=== PATIENT | male | born 1960 | race Caucasian/White ===

== ENCOUNTER 2016-11-27 19:27 | Emergency (ER) | payer SELFPAY ==
[2016-11-27] MEDS ORDERED: OXYCODONE-ACETAMINOPHEN 5-325 MG TABLET PO ONE (21:30)
[2016-11-27] MEDS ORDERED: ONDANSETRON 4 MG TAB.RAPDIS PO ONE (21:30)
--- NOTE | 2016-11-27 21:31 | ER Document Report ---
ED Medical Screen (RME) - General Chief Complaint: Flank Pain Stated Complaint: RIGHT SIDE PAIN Mode of Arrival: Wheelchair Information source: Patient Notes: pt presents with right flank pain that started . He denies trauma, denies f/v/d. Reports hx of kidney stones years ago. TRAVEL OUTSIDE OF THE [place] IN LAST 30 DAYS: No - Related Data Allergies/Adverse Reactions: No Known Allergies Allergy (Verified 03/08/13 15:01) Past Medical History Pulmonary Medical History: Denies: Hx Tuberculosis Neurological Medical History: Reports: Hx Migraine Renal/ Medical History: Denies: Hx Peritoneal Dialysis Psychiatric Medical History: Reports: Hx Depression Past Surgical History: Reports: Hx Orthopedic Surgery - lumbar spine x3. Denies : Hx Pacemaker - Immunizations Hx Diphtheria, Pertussis, Tetanus Vaccination: Yes Physical Exam - Vital signs Vitals: Temp Pulse Resp BP Pulse Ox 97.7 F 83 18 148/94 H 96 11/27/16 19:44 11/27/16 19:44 11/27/16 19:44 11/27/16 19:44 11/27/16 19:44 Course - Vital Signs Vital signs: Temp Pulse Resp BP Pulse Ox 97.7 F 83 18 148/94 H 96 11/27/16 19:44 11/27/16 19:44 11/27/16 19:44 11/27/16 19:44 11/27/16 19:44
[2016-11-27 21:49] LABS: ABSOLUTE BASOPHILS # (AUTO) 0.1 10^3/uL (0.0-0.2); ABSOLUTE EOSINOPHILS # (AUTO) 0.3 10^3/uL (0.0-0.6); ABSOLUTE LYMPHOCYTES (AUTO) 3.8 10^3/uL (0.5-4.7); ABSOLUTE MONOCYTES (AUTO) 0.8 10^3/uL (0.1-1.4); ABSOLUTE NEUT (AUTO) 5.3 10^3/uL (1.7-8.2); BASOPHILS % (AUTO) 0.8 % (0-2); EOSINOPHILS % (AUTO) 2.5 % (0-6); HEMOGLOBIN 15.3 g/dL (13.5-17.0); HGB HCT DIFFERENCE -0.1; LYMPHOCYTES % (AUTO) 37.1 % (13-45); MEAN CORPUSCULAR HEMOGLOBIN 31.7 pg (27.0-33.4); MEAN CORPUSCULAR HGB CONC 33.3 g/dL (32.0-36.0); MEAN CORPUSCULAR VOLUME 95 fl (80-97); MONOCYTES % (AUTO) 7.4 % (3-13); RED BLOOD COUNT 4.82 10^6/uL (4.35-5.55); RED CELL DISTRIBUTION WIDTH 13.7 % (11.5-14.0); SEGMENTED NEUTROPHILS % (AUTO) 52.2 % (42-78); WHITE BLOOD COUNT 10.2 10^3/uL (4.0-10.5)
[2016-11-27 21:52] LABS: APPEARANCE,URINE CLEAR; BILIRUBIN,URINE NEGATIVE (NEGATIVE); GLUCOSE, URINE NEGATIVE (NEGATIVE); KETONES,URINE NEGATIVE (NEGATIVE); LEUKOCYTE ESTERASE,URINE NEGATIVE (NEGATIVE); NITRITE,URINE NEGATIVE (NEGATIVE); PROTEIN,URINE NEGATIVE (NEGATIVE); URINE SPECIFIC GRAVITY 1.002; UROBILINOGEN,URINE NEGATIVE mg/dL (<2.0)
[2016-11-27 22:07] LABS: ALANINE AMINOTRANSFERASE 42 U/L (21-72); ALBUMIN 4.6 g/dL (3.5-5.0); ALKALINE PHOSPHATASE 76 U/L (38-126); ANION GAP 12 (5-19); ASPARTATE AMINO TRANSFERASE 28 U/L (17-59); BILIRUBIN,DIRECT 0.2 mg/dL (0.0-0.4); BILIRUBIN,TOTAL 0.7 mg/dL (0.2-1.3); BLOOD UREA NITROGEN 14 mg/dL (7-20); CALCIUM 10.6 mg/dL (8.4-10.2); CARBON DIOXIDE 25 mmol/L (22-30); CHLORIDE 106 mmol/L (98-107); CREATININE RESULT 0.78 mg/dL (0.52-1.25); GLUCOSE 90 mg/dL (75-110); LIPASE 209.4 U/L (23-300); POTASSIUM 4.1 mmol/L (3.6-5.0); SODIUM 143.1 mmol/L (137-145); TOTAL PROTEIN 7.3 g/dL (6.3-8.2)
--- NOTE | 2016-11-28 02:10 | ER Document Report ---
ED General - General Chief Complaint: Flank Pain Stated Complaint: RIGHT SIDE PAIN Mode of Arrival: Wheelchair Notes: Patient presents to the emergency department with complaints of right-sided flank pain. Patient reports pain started last , increased since then. Pt denies trauma, denies fever vomiting diarrhea. Denies pain when he voids. Denies testicular pain. Reports history of kidney stones. TRAVEL OUTSIDE OF THE [place] IN LAST 30 DAYS: No - Related Data Allergies/Adverse Reactions: No Known Allergies Allergy (Verified 03/08/13 15:01) Past Medical History - General Information source: Patient - Social History Smoking Status: Current Every Day Smoker Cigarette use (# per day): Yes Frequency of alcohol use: None Drug Abuse: None Occupation: [place] Lives with: Family Family History: Reviewed & Not Pertinent Patient has suicidal ideation: No Patient has homicidal ideation: No Pulmonary Medical History: Denies: Hx Tuberculosis Neurological Medical History: Reports: Hx Migraine Renal/ Medical History: Reports: Hx Kidney Stones. Denies: Hx Peritoneal Dialysis Psychiatric Medical History: Reports: Hx Depression Past Surgical History: Reports: Hx Orthopedic Surgery - lumbar spine x3. Denies : Hx Pacemaker - Immunizations Hx Diphtheria, Pertussis, Tetanus Vaccination: Yes Review of Systems - Review of Systems Notes: Review HPI for review of systems., All other systems negative Physical Exam - Vital signs Vitals: Temp Pulse Resp BP Pulse Ox 97.7 F 83 18 148/94 H 96 11/27/16 19:44 11/27/16 19:44 11/27/16 19:44 11/27/16 19:44 11/27/16 19:44 - Notes Notes: PHYSICAL EXAMINATION: GENERAL: Well-appearing and in no acute distress nontoxic looking HEAD: Atraumatic, normocephalic. EYES: Pupils equal round extraocular movements intact, sclera anicteric, conjunctiva are normal. ENT: nares patent, Moist mucous membranes. NECK: Normal range of motion, supple without lymphadenopathy LUNGS: CTAB and equal. No wheezes rales or rhonchi. HEART: Regular rate and rhythm without murmurs ABDOMEN: Soft, no tenderness. No guarding, no rebound BACK: C/O right flank pain ttp EXTREMITIES: Normal range of motion, no pitting edema. No cyanosis. NEUROLOGICAL: Cranial nerves grossly intact. Normal sensory/motor exams. PSYCH: Normal mood, normal affect. SKIN: Warm, Dry, normal turgor, no rashes or lesions noted Course - Re-evaluation Re-evalutation: 11/28/16 02:27 Patient labs unremarkable. Small amount of blood noted in urine, no rbc's. CT negative for kidney stone. Patient reports Percocet took the edge off the pain but it's returning. He denies recent trauma. Patient instructed on labs and CT. Instructed on importance of follow-up. - Vital Signs Vital signs: Temp Pulse Resp BP Pulse Ox 97.7 F 83 18 148/94 H 96 11/27/16 19:44 11/27/16 19:44 11/27/16 19:44 11/27/16 19:44 11/27/16 19:44 - Laboratory Result Diagrams: 11/27/16 21:20 11/27/16 21:20 Laboratory results interpreted by me: 11/27/16 11/27/16 21:20 21:20 Calcium 10.6 H Urine Blood SMALL H - Diagnostic Test Radiology reviewed: Image reviewed, Reports reviewed - neg Discharge - Discharge Clinical Impression: Right flank pain, Elevated blood pressure reading Condition: Stable Instructions: Oral Narcotic Medication ([facility]), Flank Pain ([facility]), Family Physicians / Practices, Muscle Relaxers ([facility]) Additional Instructions: *You have been evaluated for flank pain, elevated blood pressure reading *Take medication as prescribed *Rest *Follow up with a primary care provider within one week for recheck *Return to ED for worsening condition, changes, needs Monitor your blood pressure. Your blood pressure was elevated today. This may be because you were anxious, in pain or because you need medication. It is important to follow up with your primary care provider for full evaluation. Prescriptions: Cyclobenzaprine HCl [Flexeril 10 Mg Tablet] 10 mg PO TID #30 tablet Oxycodone HCl/Acetaminophen [Percocet 5-325 mg Tablet] 1 - 2 tab PO ASDIR PRN # 15 tablet PRN Reason: Forms: Elevated Blood Pressure, Return to Work
[2016-11-28] MEDS ORDERED: METHOCARBAMOL 500 MG TABLET PO ONE (02:22)
[2016-11-28] MEDS ORDERED: OXYCODONE-ACETAMINOPHEN 5-325 MG TABLET PO ONE (02:22)
[2016-11-28 02:56] VITALS: BP 150/88
== END 2016-11-28 02:50 | disposition home or self-care (01) ==
LOC: ER 19:27
DX: R10.9 Unspecified abdominal pain (principal); R31.9 Hematuria, unspecified; R03.0 Elevated blood-pressure reading, without diagnosis of hypertension; F17.210 Nicotine dependence, cigarettes, uncomplicated; Z87.442 Personal history of urinary calculi
CPT/HCPCS: 99284; 36415; 83690; 85025; 80053; 81001; 76380; S0119

== ENCOUNTER 2020-06-21 19:35 | Emergency (ER) | payer BC ==
[2020-06-21] MEDS ORDERED: HYDROCODONE/ACETAMINOPHEN 5-325 MG TABLET PO ONE (20:12)
--- NOTE | 2020-06-21 20:14 | ER Document Report ---
ED Medical Screen (RME) - General Chief Complaint: Leg Pain Stated Complaint: RIGHT LEG PAIN Time Seen by Provider: 06/21/20 20:08 Mode of Arrival: Ambulatory Information source: Patient Notes: Patient states that he had some mild soreness to the right thigh. Patient states that he stepped off of a porch and suddenly had a jarring pain. Patient denies any fall. Patient states he has a history of vascular surgery previously to this right extremity and he is concerned about possible vascular problem. I have greeted and performed a rapid initial assessment of this patient. A comprehensive ED assessment and evaluation of the patient, analysis of test results and completion of the medical decision making process will be conducted by additional ED providers. TRAVEL OUTSIDE OF THE [place] IN LAST 30 DAYS: No - Related Data Allergies/Adverse Reactions: No Known Allergies Allergy (Verified 06/21/20 20:07) Past Medical History - Social History Frequency of alcohol use: None Drug Abuse: None Pulmonary Medical History: Denies: Hx Tuberculosis Neurological Medical History: Reports: Hx Migraine Renal/ Medical History: Reports: Hx Kidney Stones. Denies: Hx Peritoneal Dialysis Psychiatric Medical History: Reports: Hx Depression Past Surgical History: Reports: Hx Orthopedic Surgery - lumbar spine x3. Denies: Hx Pacemaker - Immunizations Hx Diphtheria, Pertussis, Tetanus Vaccination: Yes Physical Exam - Vital signs Vitals: Temp Pulse Resp BP Pulse Ox 98.3 F 94 16 167/100 H 97 06/21/20 20:00 06/21/20 20:00 06/21/20 20:00 06/21/20 20:00 06/21/20 20:00 - General Notes: Right thigh tenderness, 2+ dorsalis pedis pulse Course - Vital Signs Vital signs: Temp Pulse Resp BP Pulse Ox 98.3 F 94 16 167/100 H 97 06/21/20 20:00 06/21/20 20:00 06/21/20 20:00 06/21/20 20:00 06/21/20 20:00
--- NOTE | 2020-06-21 23:55 | RADIOLOGY REPORT (SQ) ---
EXAM DESCRIPTION: US LOWER EXTREMITY ARTERIES LIMITED/UNILATERAL/FOLLOW COMPLETED DATE/TME: 06/21/2020 20:11 CLINICAL HISTORY: 59 years Male r thigh pain, hx vascular surgery COMPARISON: None. TECHNIQUE: Duplex imaging performed to evaluate the right lower extremity arterial structures. FINDINGS: Triphasic flow in the common femoral, femoral artery, popliteal and calf vessels. Triphasic flow is present in the dorsalis pedis without focal area of stenosis IMPRESSION: Triphasic flow to the ankle No evidence of occlusion or stenosis
[2020-06-22 01:48] VITALS: BP 141/108
== END 2020-06-22 01:47 | disposition left against medical advice (07) ==
LOC: ER 19:35
DX: M79.604 Pain in right leg (principal); Z53.20 Procedure and treatment not carried out because of patient's decision for unspecified reasons
CPT/HCPCS: 93926; 99281